=== PATIENT | male | born 1960 | race Hispanic/Latino ===

== ENCOUNTER 2017-01-20 09:20 | Emergency (ER) | payer SELFPAY ==
[~2017-01-20] VITALS: Ht 162.6 cm; Wt 114.0 kg
[2017-01-20 09:20] VITALS: BP 224/104; PULSE 83; RESP 27; O2SAT 100
[~2017-01-20 09:20] MED LIST: NOMED
[2017-01-20] MEDS ORDERED: Etomidate 2 mg/mL 20 mL Inj IV ONE (09:21)
[2017-01-20] MEDS ORDERED: Rocuronium 10 mg/mL 5 mL Inj ONE (09:21)
--- NOTE | 2017-01-20 09:28 | ED.REPORT ---
HPI-Stroke / CVA Jan 20, 2017 ED Provider: Guicho Chan MD Pt is a 56 year old male presenting to the ED via EMS after he collapsed in the parking lot at work 30 minutes ago. He was last known well at 0850 this morning. Medics report that he was hypertensive at 205/171 with a GCS of 9 and left sided deficits in the field. His reports that he was acting normal this morning and at baseline he is able to move his left extremities normally. She states that he did not actually fall or complain of any pain, but he felt weak. Hx of present illness limited due to patient condition. Nursing Notes Stated Complaint: CODE STROKE Chief Complaint: Unresponsive Nursing Notes Reviewed: Yes Allergies: Coded Allergies: No Known Allergies (Unverified Allergy, Unknown, 01/20/17) Miscellaneous Medications No Historical Medication (No Historical Medication) Ea (Reported) General Time Seen by Provider: 09:20 Chief Complaint Mental status change Left-sided Hx Obtained From: Spouse, EMS Arrived By: Ambulance Time last known well 0850 Sudden in Onset?: Yes Symptom Duration: Since onset Progression Since Onset: Constant Recent Healthcare: No recent doctor visit, No recent hospitalization Similar Sx Previous: No Risk Factors Risk Notes: Unable to fully assess NIH secondary to patient condition. NIH Stroke Scale Level of Consciousness: Not alert, arousable (1) Ask Month & Age: 0 questions right (2) Open/Close Eyes/Hand Laborer Plumbing: Performs 1 task (1) Horizontal EO Movements: None (0) Visual Horne: No visual loss (0) Facial Palsy: Minor paralysis (1) Right Arm Motor Drift (10s): No drift 10 sec (0) Left Arm Motor Drift (10s): No movement (4) Right Leg Motor Drift (5s): Some effort v gravity (2) Left Leg Motor Drift (5s): No movement (4) Time NIHSS Performed: 09:32 Past Medical History Past Medical History healthy Past Surgical History denies Family History denies any family hx of stroke or aneurysm Smoking History Never Smoker Social History Alcohol Use: "Social" Drug Use: Denies drug use Other Social History: Ambulatory Status Independent Review of Systems Unable to perform secondary to pt condition. Unable to Obtain ROS Patient condition, Mental status Physical Exam Nursing note and vitals reviewed. Constitutional: Well-developed, well-nourished middle aged male lying in bed. Diaphoretic. Pt has decreased responsiveness. Head: Normocephalic and atraumatic. No obvious external signs of trauma. Mouth/Throat: Oropharynx is clear and moist. No oropharyngeal exudate. Eyes: EOM appear grossly normal and he is able to track. Pupils are equal, round , and reactive to light. Neck: Supple, no tracheal deviation. Cardiovascular: Normal rate, regular rhythm. Equal and intact distal pulses throughout. Pulmonary/Chest: Effort normal and breath sounds normal. No respiratory distress. Abdominal: Soft. No distension. There is no tenderness, rebound, or guarding. Bowel sounds present. Musculoskeletal: No edema or tenderness appreciated. Neurological: Somnolent but arousable to some questions, though intermittent. Diffuse left sided deficits. Unable to state month or age. Right arm no deficits. Right leg some drift, left arm and leg no movement against gravity whatsoever. Minor right sided facial palsy. Skin: Warm and moist; diaphoretic; no rashes or pallor appreciated. Psychiatric: Unable to assess 2/2 patient condition. Initial Vital Signs Vital Signs (First) Date Time Temp Pulse Resp B/P Pulse Ox O2 Delivery O2 Flow Rate FiO2 01/20/17 09:20 36.2 83 27 224/104 100 Non-Rebreather 01/20/17 10:00 15 HR: 82 RR: 26 O2: 96 BP: 224/111 Initial VS: Reviewed, Vital signs abnormal Interpretation & Diagnostics Lab Results Interpretation Result Diagram: 01/20/17 0933 01/20/17 0933 Test 01/20/17 09:33 White Blood Count 14.8th/mm3 (3.8-10.1) Red Blood Count 5.08mil/mm3 (4.40-5.80) Hemoglobin 12.9g/dL (13.8-17.2) Hematocrit 40.4% (41.0-50.0) Mean Corpuscular Volume 79.5fL (81-100) Mean Corpuscular Hemoglobin 25.4pg (27.0-35.0) Mean Corpuscular Hemoglobin Concent 31.9% (32.0-37.0) Red Cell Distribution Width 17.7% (12.3-15.4) Platelet Count 245bil/L (150-400) Neutrophils (%) (Auto) 73.0% (40-74) Lymphocytes (%) (Auto) 15.7% (14-46) Monocytes (%) (Auto) 8.1% (4-12) Eosinophils (%) (Auto) 1.8% (0-5) Basophils (%) (Auto) 0.2% (0-3) Prothrombin Time 10.2sec (8.1-12.5) Prothromb Time International Ratio 0.95ratio Activated Partial Thromboplast Time 25.7sec (22.8-33.0) Sodium Level 144mEq/L (134-144) Potassium Level 3.1mEq/L (3.5-5.2) Chloride Level 104mEq/L (97-108) Carbon Dioxide Level 23mmol/L (18-29) Blood Urea Nitrogen 15mg/dL (6-24) Creatinine 0.88mg/dL (0.76-1.27) Estimat Glomerular Filtration Rate 95mL/min (>59) Glucose Level 140mg/dL (60-99) Calcium Level 8.5mg/dL (8.5-10.1) Total Bilirubin 0.3mg/dL (0.0-1.2) Aspartate Amino Transf (AST/SGOT) 32U/L (0-50) Alanine Aminotransferase (ALT/SGPT) 34U/L (0-44) Alkaline Phosphatase 142U/L (25-150) Troponin T 0.010ug/L (0.0-0.011) Total Protein 7.6g/dL (6.4-8.4) Albumin 4.2g/dL (3.4-5.0) Hold Richardson Top Tube Received (Received) ECG Interpretation ECG Interpretation: Probable left atrial enlargement. Probable LVH with secondary repol abnormalities. Time: 09:38 Interpreted by: ED physician Normal ECG Interpretation: Normal rate (80), Normal sinus rhythm X-Ray Chest Interpretation Chest Xray Interpretation: Endotracheal tube in place but appears to be high. Will advance. We advanced the tube 2 cm. Interpretation / Wet Read by: Wet read ED physician CT Head Interpretation IMPRESSION: 1. Large right basal ganglia acute parenchymal hemorrhage with extension into the ventricles. 2. Diffuse effacement of CSF space compatible with increased intracranial pressure. There is mild, approximately 4 mm of [id number] midline shift. 3. Findings discussed with Dr. Guicho Chan on 01/20/2017 at 0937 hours. This study fulfills neurological imaging criteria for inclusion or exclusion of acute stroke therapies based on available published neurological imaging guidelines. Dictated by: Nieves Mejia MD, PhD on 01/20/2017 at 9:34 Study: Head CT no contrast Interpretation / Wet Read by: Interpret - Radiologist, Discussed w radiologist Procedures Intubation Time: 10:02 Procedure Performed by: ED physician Consent / Setup / Site Prep: Consent from spouse, Time-out performed, Oxygen administered, Pulse oximeter applied, equipment monitor phototypesetting applied, Hand hygiene observed, Stand sterile technique Patient Position: Sniff position Blade / ET Tube / Route: Cullen scope, ET tube cuffed (7.5) Procedural Sedation/Analgesia: Sedation: Etomidate (40 mg) Neuromuscular Agent: Rocuronium ET Confirmation: BS equal, End tidal CO2 device, Rising O2 sat Secured / Marked: ET tube device, Tube marked at ___ cm (22), Tube marked at teeth Complications: None Post-Procedure: Condition improved, Tolerated procedure well Re-Eval/Medical Decision Med Decision/Clinical Course In summary, 56-year-old male with no known past medical history presenting to the ED after collapsing approximately 30 minutes prior to arrival. Differential is broad and includes metabolic abnormality, acute intracranial mass, stroke/acute intracranial bleed, overdose/ingestion, ACS, dysrhythmia, etc. Upon arrival, patient protecting his airway, however only intermittently responding to commands and with obvious left-sided motor deficit. Unable to assess the patient's sensation, nor able to complete NIH stroke scale secondary to the severity of the patient's condition and his ability to cooperate. Patient's airway, breathing, and circulation assessed on his arrival, immediately taken thereafter to the CT scanner; CT scan demonstrates a large right basal ganglia acute parenchymal hemorrhage with extension into the ventricles, with associated diffuse effacement of the CSF space consistent with increased intracranial pressure and 4 mm of [id number] midline shift. Contacted [facility] upon notification for transfer; please see below - [facility] contacted for transport. Started on nicardipine drip with a target systolic pressure of 160 mmHg given pressures in the 220s here. After discussion with the [facility] learning and development officer, we will hold off on mannitol for now. Patient subsequently intubated over concern for no longer protecting his airway and anticipated clinical course/worsening of his condition. This was tolerated well. Tube initially at 22 cm, advanced 2 cm after seeing CXR. BS remain present bilaterally, good oxygenation and ventilation. Started on propofol drip for sedation after the procedure, followed by some fentanyl. Initial laboratory studies notable for a white blood cell count of 14.8, hemoglobin 12.9 , platelets 245. Coags within normal limits. CMP grossly within normal limits with the exception of a potassium of 3.1; potassium repletion initiated here in the emergency department. EKG demonstrates sinus rhythm with likely left ventricular hypertrophy. He was not complaining of any chest pain prior to or during the episode and initial troponin here negative. Discussed the initial findings and the plan with the family at length; all questions answered. Plan transfer to [facility] ICU for further management and evaluation of this critically ill patient. Re-Evaluation/Progress #1: Time of Eval: 09:30 Patient Status: Condition improved Re-Evaluation/Progress Note: Pt back from CT. Performed NIH stroke scale at 0932. Unable to perform full NIH stroke scale secondary to patient condition and CT results. Spoke to the pt's family about plan for transfer. Re-Evaluation/Progress #2: Time of Eval: 09:47 Patient Status: Condition improved Re-Evaluation/Progress Note: Discussed plan to intubate the pt. His family understands and agrees with plan. Re-Evaluation/Progress #3: Time of Eval: 10:02 Patient Status: Condition improved Re-Evaluation/Progress Note: Prepared to intubate the pt. Pt tolerated procedure well. Equal breath sounds post procedure. Re-Evaluation/Progress #4: Time of Eval: 10:29 Patient Status: Condition improved Re-Evaluation/Progress Note: Airlift in the room. Pt stable for transfer. Consultation #1: Consulted With: Neurosurgery Call Returned at: 09:50 Stencil Inspector: Will see patient, Agrees with plan, Accepts admit Note: [facility] neurosurgery. Dr. Glover. Agreed with BP target of 160/90 with Nicardipine and accepts transfer. Consultation #2: Consulted With: [employer] Machine Operator Call Returned at: 10:13 Stencil Inspector: Agrees with plan Note: Spoke to Dr. Greer, learning and development officer at [facility]. Advises no Mannitol for now. Counseled Regarding: Diagnosis, Lab results, Need for transfer Patient Discharge & Departure Impression: Primary Impression: Hemorrhagic stroke Disposition: Transfer, Acute Care Facility ([facility]) Transfer Requested at: 09:40 Transfer Accepted: Yes Transfer Accepted at: 09:50 Transfer Reason: Higher level of care Spoke with: Specialty physician Patient Status: Stabilized within capabil Patient Informed: Yes Discharge Condition All VS Reviewed: Yes Condition: Critical Referrals: [facility] (PCP) Crit Care Except Billable Proc Time Spent: 75-104 minutes Services Performed: Patient management by me, Time spent at bedside, Reviewing test results, Reviewing imaging, Discussing patient care, Documentation in record, Time with fam/surrogate Critical Care Notes: Please see MDM. [place] Attestation Portions of this note were transcribed by Yue Gan. I, Dr. Chan personally performed the history, physical exam and medical decision-making; I reviewed and confirmed the accuracy of the information in the transcribed note. Signed by: Barrington Jones, 01/20/2017 at 1025. copies to: [facility] Guicho Chan MD Jan 20, 2017 09:28 YUE GAN Jan 20, 2017 09:39
--- NOTE | 2017-01-20 09:43 | DRSVH ---
PROCEDURE: CT BRAIN (TPA) ([id number]) INDICATIONS: Stroke TECHNIQUE: Noncontrast 4.5 mm thick angled axial sections acquired from the foramen magnum to the vertex, with c oronal reformats. COMPARISON: None. FINDINGS: Image quality: Excellent. There is a large, or acute bleed involving the right basal ganglia measures approximately 5.3 x 3.5 x 3.9 cm. Hemorrhage extends into the ventricular system with acute hemorrhage identified in the later al ventricles, third ventricle and fourth ventricle. There is diffuse effacement of the CSF space inc luding effacement of the basilar cisterns compatible with diffuse increased intracranial hemorrhage. There is mild, approximate 4 mm of [id number] midline shift.. IMPRESSION: 1. Large right basal ganglia acute parenchymal hemorrhage with extension into the ventricles. 2. Diffuse effacement of CSF space compatible with increased intracranial pressure. There is mild, ap proximately 4 mm of [id number] midline shift. 3. Findings discussed with Dr. Guicho Chan on 01/20/2017 at 0937 hours. This study fulfills neurological imaging criteria for inclusion or exclusion of acute stroke therapie s based on available published neurological imaging guidelines. Dictated by: Nieves Mejia MD, PhD on 01/20/2017 at 9:34 Approved by: Nieves Mejia MD, PhD on 01/20/2017 at 9:40
[2017-01-20 09:44] LABS: BASOPHILS % (AUTO) 0.2 % (0-3); EOSINOPHILS % (AUTO) 1.8 % (0-5); MONOCYTES % (AUTO) 8.1 % (4-12); Mean Corpuscular Hemoglobin 25.4 pg (27.0-35.0); Mean Corpuscular Volume 79.5 fL (81-100); Platelet Count 245 bil/L (150-400)
[2017-01-20] MEDS ORDERED: Labetalol 5 mg/mL 4 mL Inj IV PRN (09:45)
[2017-01-20 10:00] VITALS: BP 236/103; PULSE 88; RESP 25; O2SAT 100
[2017-01-20 10:00] LABS: INR 0.95 ratio
[2017-01-20] MEDS: NiCARdipine Inj 25 MG in Dextrose 5% 240 ML IV SCH ×2 (10:03→10:15)
[2017-01-20 10:06] VITALS: BP 239/108; PULSE 100; RESP 17; O2SAT 96
[2017-01-20 10:10] LABS: TROPONIN T 0.01 ug/L (0.0-0.011)
[2017-01-20 10:12] VITALS: PULSE 112; RESP 18; O2SAT 96
[2017-01-20] MEDS ORDERED: Potassium Chloride Inj 20 MEQ in Dextrose 5% 250 ML IV ONE (10:30)
--- NOTE | 2017-01-20 10:40 | ABG ---
DateTimeAnalyzed 10:31:16 -_ pH ____7.219 - 7.350 7.450 pCO2 ___75.5__ -mmHg 35.0 45.0 pO2 ___82.0__ -mmHg 69.0 116 HCO3- ___30.8__ -mmol/L 22.0 26.0 ABE ____2.1__ -mmol/L tHb ___13.8__ -g/dL O2Hb ___92.2__ -% COHb ____1.7__ -% 1.5 MetHb ____0.0__ -% sO2 ___93.8__ -% FIO2 __100.0__ -% PEEP ____5.0__ -cmH2O Set_RR 20 -b/min Drawn By rs - Date/Time Notified____ 10:40:00 -_ A/C ___20.0__ - Oxygen Device 1 VENTILATOR - Notified By RS - K+ ____3.1__ -mmol/L tO2 ___18.0__ -Vol%
[2017-01-20 10:41] VITALS: BP 195/104; PULSE 111; O2SAT 96
--- NOTE | 2017-01-20 10:53 | DRSVH ---
PROCEDURE: X-RAY CHEST ONE VIEW, PORTABLE ([id number]) INDICATIONS: stroke, post intubation TECHNIQUE: One view of the chest was acquired. COMPARISON: [facility], , CHEST 2VW, 02/22/2013, 14:22. FINDINGS: Surgical changes and devices: There is an endotracheal tube with the tip approximately 6 cm from the iris. Lungs and pleura: The right lung apex is incompletely included on the current study. No pleural eff usions or definite pneumothorax. There is bilateral pulmonary edema. There are also increased bilat eral infrahilar opacities consistent with atelectasis or consolidation. Mediastinum: Mediastinal contours appear prominent likely due to technique and low lung volumes. He art size is enlarged. Bones and chest wall: No suspicious bony lesions. Overlying soft tissues appear unremarkable. IMPRESSION: 1. Endotracheal tube tip approximately 6 cm from the iris. Consider advancement by approximately 2 cm. 2. Increased pulmonary edema bilaterally with cardiomegaly suggestive of congestive heart failure. 3. Increased medial infrahilar opacities consistent with atelectasis or consolidation. Dictated by: Amarjit Contreras M.D. on 01/20/2017 at 10:48 Approved by: Amarjit Contreras M.D. on 01/20/2017 at 10:51
[2017-01-20] MEDS ORDERED: Furosemide 10 mg/mL 4 mL Inj ONE (10:54)
[2017-01-20 11:07] VITALS: BP 195/104; PULSE 111; RESP 18; O2SAT 96
== END 2017-01-20 11:13 | disposition short-term general hospital (02) ==
LOC: SED 09:20
DX: I63.9 Cerebral infarction, unspecified (principal)